=== PATIENT | female | born 1985 ===

== ENCOUNTER 2017-01-25 19:16 | Emergency (ER) | payer BC, MEDICAID ==
[~2017-01-25] VITALS: Ht 167.6 cm; Wt 56.7 kg
[2017-01-25] MEDS ORDERED: DIOVAN (19:29)
--- NOTE | 2017-01-25 19:29 | NUR ---
Pt states that her feet began swelling 2 days ago, also c/o painm, 11/26. PMS intact, right foot has mild to moderate swelling, left foot has minor swelling. Pt denies CP, SOB, numbness/tingling, dizziness, n/v, no other complaints, no distress noted.
[2017-01-25] MEDS ORDERED: PROMETHAZINE HCL 25 MG/1 ML VIAL IM ONE (19:45)
[2017-01-25] MEDS ORDERED: HYDROCODONE/APAP 10-325 MG TABLET PO ONE (19:45)
[2017-01-25] MEDS ORDERED: diphenhydrAMINE 50 MG CAPSULE PO ONE (19:45)
[2017-01-25] MEDS ORDERED: HYDROCODONE/APAP 10-325 MG TABLET ONE (20:02)
[2017-01-25] MEDS ORDERED: diphenhydrAMINE 50 MG CAPSULE ONE (20:02)
[2017-01-25] MEDS ORDERED: PROMETHAZINE HCL 25 MG/1 ML VIAL ONE (20:02)
[2017-01-25 20:14] LABS: BASOPHILS # (AUTO) 0.1 K/uL (0.0-8.0); BASOPHILS % (AUTO) 1.3 % (0.0-2.0); EOSINOPHILS # (AUTO) 0.1 K/uL (0.0-0.7); EOSINOPHILS % (AUTO) 2.2 % (0.0-7.0); HEMATOCRIT 33.8 % (37-47); HEMOGLOBIN 11.1 G/DL (12.0-16.0); LYMPHOCYTES # (AUTO) 2.2 K/UL (0.8-4.8); LYMPHOCYTES % (AUTO) 43.8 % (20.5-51.5); MEAN CORPUSCULAR HEMOGLOBIN 28.2 UUG (27.0-31.0); MEAN CORPUSCULAR HGB CONC 33 g/dL (32.0-37.0); MONOCYTES # (AUTO) 0.3 K/UL (0.1-1.30); MONOCYTES % (AUTO) 6.2 % (0.0-11.0); NEUTROPHILS # (AUTO) 2.3 K/UL (1.8-8.9); NEUTROPHILS % (AUTO) 46.5 % (38.5-71.5); PLATELET COUNT (AUTO) 274 K/UL (150-450); RED BLOOD CELL COUNT(AUTO) 3.93 MIL/UL (4.2-5.4)
[2017-01-25 20:20] LABS: CREATININE 0.6 mg/dL (0.6-1.3); POTASSIUM 3.7 mmol/L (3.5-5.1)
[2017-01-25 20:31] LABS: BILIRUBIN,DIRECT 0.1 mg/dL (0.0-0.2); BILIRUBIN,TOTAL 0.4 mg/dL (0.2-1.0); TOTAL PROTEIN, SERUM 7.2 g/dL (6.4-8.2)
--- NOTE | 2017-01-25 21:49 | NUR ---
Gave pt. d/c instructions, verbalized understanding.
== END 2017-01-25 21:55 | disposition home or self-care (01) ==
LOC: ER 19:19
DX: R60.0 Localized edema (principal); G89.4 Chronic pain syndrome; D64.9 Anemia, unspecified; I10 Essential (primary) hypertension; Z87.442 Personal history of urinary calculi; Z88.6 Allergy status to analgesic agent
CPT/HCPCS: 36415; 85025; A4663; J2550; Q0163